=== PATIENT | male | born 1960 | race Caucasian/White ===

== ENCOUNTER 2018-12-04 13:11 | Emergency (ER) | payer MEDICAID ==
[~2018-12-04] VITALS: Ht 170.2 cm; Wt 68.0 kg
[~2018-12-04 13:11] MED LIST: VICODIN
[2018-12-04] MEDS ORDERED: IBUPROFEN 600MG TABLET PO STA (15:02)
[2018-12-04 16:28] LABS: BASOPHILS % 0.2 % (0.0-2.0); CHLORIDE 106 mEq/L (98-107); EOSINOPHILS % 0.3 % (0.0-5.0); HEMATOCRIT. 45.3 % (42.0-52.0); HEMOGLOBIN. 15.6 g/dL (14.0-18.0); LYMPHOCYTES % 21.9 % (20.0-50.0); MEAN CORPUSCULAR VOLUME 87.1 fL (80.0-94.0); MEAN PLATELET VOLUME 8.5 fl (7.4-10.4); MONOCYTES % 6.1 % (2.0-8.0); NEUTROPHILS % 71.5 % (40.0-76.0); PLATELET 315 x1000/uL (130-400)
[2018-12-04 16:30] LABS: CLARITY URINE CLEAR (CLEAR); COLOR URINE DARK YELLOW (YELLOW); KETONES URINE NEGATIVE (NEGATIVE); LEUKOCYTE ESTERASE URINE NEGATIVE (NEGATIVE); NITRITE URINE NEGATIVE (NEGATIVE); OCCULT BLOOD URINE NEGATIVE (NEGATIVE); PROTEIN URINE TRACE (NEGATIVE); SPECIFIC GRAVITY URINE 1.025 (1.005-1.030)
[2018-12-04 16:33] LABS: ETHANOL BLOOD < 10 mg/dL
[2018-12-04 16:42] LABS: *AMPHETAMINES SCREEN URINE NEGATIVE (NEGATIVE)
[2018-12-04 16:43] LABS: *BARBITURATES SCREEN URINE NEGATIVE (NEGATIVE); *BENZODIAZEPINES SCREEN URINE PRESUMTIVE POSITIVE (NEGATIVE); *COCAINE SCREEN URINE NEGATIVE (NEGATIVE); CANNABINOID URINE SCREEN NEGATIVE (NEGATIVE); METHADONE URINE SCREEN NEGATIVE (NEGATIVE); OPIATES URINE SCREEN PRESUMTIVE POSITIVE (NEGATIVE)
[2018-12-04 16:44] LABS: PHENCYCLIDINE URINE SCREEN NEGATIVE (NEGATIVE)
[2018-12-04] MEDS ORDERED: LORAZEPAM 1MG TABLET PO ONE (18:30)
[2018-12-05] MEDS ORDERED: LORAZEPAM 0.5MG TABLET PO ONE ×2 (03:45→15:30)
[2018-12-05] MEDS ORDERED: ACETAMINOPHEN 325MG TABLET PO ONE ×2 (10:00→15:30)
[2018-12-05] MEDS ORDERED: OXYCODONE HCL/ACETAMINOPHEN 5/325MG TABLET PO ONE (10:00)
[2018-12-05 17:00] VITALS: BP 112/65
== END 2018-12-05 19:51 | disposition home or self-care (01) ==
LOC: ER 13:11
DX: T40.2X5A Adverse effect of other opioids, initial encounter (principal); R45.851 Suicidal ideations; Y92.89 Other specified places as the place of occurrence of the external cause; E78.00 Pure hypercholesterolemia, unspecified
CPT/HCPCS: 36415; 80305; 80307; 80320; 80329; 81003; 93005; 99284; G0480

== ENCOUNTER 2021-10-21 03:22 | Emergency (ER) | payer MEDICAID ==
[~2021-10-21] VITALS: Ht 91.4 cm; Wt 45.0 kg
[2021-10-21 03:24] VITALS: BP 160/110
== END 2021-10-21 11:11 | disposition left against medical advice (07) ==
LOC: ER 03:40
DX: Z53.21 Procedure and treatment not carried out due to patient leaving prior to being seen by health care provider (principal)